=== PATIENT | female | born 1985 | race Caucasian/White ===

== ENCOUNTER 2022-09-24 12:49 | Emergency (ER) | payer OTHER ==
[~2022-09-24] VITALS: Ht 167.6 cm; Wt 67.6 kg
[~2022-09-24 12:49] MED LIST: AMOX1TAB12 PO; ULTRACET PO
[2022-09-24] MEDS ORDERED: DICLOFENAC POTA50 MG PO (16:00)
== END 2022-09-24 18:04 | disposition home or self-care (01) ==
LOC: ER 12:49
DX: S83.92XA Sprain of unspecified site of left knee, initial encounter (principal); X58.XXXA Exposure to other specified factors, initial encounter; Y93.39 Activity, other involving climbing, rappelling and jumping off; Y92.89 Other specified places as the place of occurrence of the external cause; Y99.9 Unspecified external cause status